=== PATIENT | male | born 1960 | race American Indian/Alaskan Native ===

== ENCOUNTER 2020-05-08 05:52 | Day surgery (SDC) | payer OTHER ==
[2020-05-08] MEDS ORDERED: SODIUM CHLORIDE 0.9% 1000 ML 1,000 ML IV SCH (06:00)
[2020-05-08] MEDS ORDERED: ceFAZolin/Water 2 GM/20 ML 2 GM/20 ML SYRINGE IV NR (06:00)
[2020-05-08 06:52] LABS: Hematocrit 32.1 % (35.5-45.6); Hemoglobin 10.6 gm/dl (11.8-15.2); Mean Corpuscular HGB Conc 33 % (32-34); Mean Corpuscular Volume 89 fl (84-94); Platelet Count 170 K/mm3 (140-440); Red Blood Count 3.62 M/mm3 (3.65-5.03); Red Cell Distribution Width 16.5 % (13.2-15.2)
[2020-05-08 07:02] LABS: Calcium 8.6 mg/dL (8.4-10.2)
[2020-05-08] MEDS ORDERED: LIDOCAINE (1%) 10 MG/1 ML VIAL 20 ML MDV ONE (07:05)
[2020-05-08] MEDS ORDERED: SODIUM CHLORIDE P/F VIAL 10 ML 0 ML ONE (07:06)
[2020-05-08] MEDS ORDERED: HEPARIN 10,000 UNITS/10 ML VIAL ONE (07:06)
[2020-05-08] MEDS ORDERED: BUPIVACAINE/PF (0.5%) 5 MG/1 ML 30 ML VIAL INFILTRATI ONE ×4 (07:06→08:50)
[2020-05-08] MEDS ORDERED: SODIUM CHLORIDE 0.9% 500 ML 500 ML ONE (07:06)
--- NOTE | 2020-05-08 07:15 | Anesthesia Day of Surgery ---
Anesthesia Day of Surgery - Day of Surgery Patient Examined: Yes Patient H&P Reviewed: Yes Patient is NPO: Yes Beta Blockers: Yes
--- NOTE | 2020-05-08 07:20 | Anesthesia Consultation ---
Anesthesia Consult and Med Hx - Airway Anesthetic Teeth Evaluation: Dentures, Edentulous ROM Head & Neck: Adequate Mental/Hyoid Distance: Adequate Mallampati Class: Class II Intubation Access Assessment: Good - Pre-Operative Health Status ASA Pre-Surgery Classification: ASA3 Proposed Anesthetic Plan: General - Pulmonary Hx Smoking: Yes (QUIT 2015) Hx Asthma: No Hx Respiratory Symptoms: No (+2FS) COPD: No Hx Pneumonia: No Hx Sleep Apnea: Yes (LOST APPROX[ 61 LBS ]) - Cardiovascular System Hx Hypertension: Yes Hx Heart Attack/AMI: No (CHF 2015; pt states stable now. Last cardiol visit 6-7 mos ago) Hx Pacemaker: No Hx Internal Defibrillator: No Hx Heart Murmur: No - Central Nervous System Hx Seizures: No Hx Back Pain: No Hx Psychiatric Problems: No - Gastrointestinal Hx Gastroesophageal Reflux Disease: No - Endocrine Hx Renal Disease: Yes Hx End Stage Renal Disease: Yes (Last HD yesterday. Still makes urine) Hx Cirrhosis: No Hx Liver Disease: No Hx Non-Insulin Dependent Diabetes: Yes Hx Thyroid Disease: No - Hematic Hx Anemia: Yes Hx Sickle Cell Disease: No - Other Systems Hx Alcohol Use: Yes (OCC. BEER) Hx Substance Use: No Hx Cancer: No Hx Obesity: Yes
[2020-05-08] MEDS ORDERED: HEPARIN 10,000 UNITS/10 ML VIAL IV ONE ×2 (07:23→08:50)
[2020-05-08] MEDS ORDERED: SODIUM CHLORIDE 0.9% IRR 1,500 ML BOTTLE IR ONE ×2 (07:24→08:50)
[2020-05-08] MEDS ORDERED: SODIUM CHLORIDE 0.9% 500 ML IVPB IRRIGATION ONE ×2 (07:25→08:50)
[2020-05-08] MEDS ORDERED: propofoL 200 MG/20 ML VIAL IV ONE (07:43)
[2020-05-08] MEDS ORDERED: HYDROmorphone 1 MG/1 ML INJ ONE (07:43)
[2020-05-08] MEDS ORDERED: LIDOCAINE MPF (2%) 20 MG/1 ML VIAL 5 ML ONE (07:43)
[2020-05-08] MEDS ORDERED: ONDANSETRON 4 MG/2 ML INJ ONE (10:44)
--- NOTE | 2020-05-08 11:02 | Short Stay Summary ---
Short Stay Documentation Date of service: 05/08/20 Narrative H&P: See H&P - History H&P: obtained from office - Allergies and Medications Current Medications: Allergies No Known Allergies Allergy (Unverified 05/01/20 14:43) Home Medications Medication Instructions Recorded Confirmed Last Taken Type Adult Multivitamin Extra D3 50,000 units IM QMONTH 05/01/20 05/08/20 05/07/20 09:00 History Atorvastatin 40 mg PO BID 05/01/20 05/08/20 05/07/20 09:00 History Colchicine 0.5 mg PO PRN PRN 05/01/20 05/08/20 Unknown History Furosemide [Lasix TAB] 40 mg PO BID 05/01/20 05/08/20 05/08/20 05:00 History amLODIPine 10 mg PO BID 05/01/20 05/08/20 05/08/20 05:00 History carvediloL [Coreg] 12.5 mg PO BID 05/01/20 05/08/20 05/08/20 05:00 History glyBURIDE [Diabeta] 5 mg PO BID 05/01/20 05/08/20 05/07/20 09:00 History hydrALAZINE 50 mg PO TID 05/01/20 05/08/20 05/08/20 05:00 History Active Medications Sodium Chloride (Nacl 0.9% 1000 Ml) 1,000 mls @ 42 mls/hr IV DIRECT JOCE Last Admin: 05/08/20 07:10 Dose: 42 mls/hr Documented by: Cefazolin Sodium (Ancef/Sterile Water 2 Gm/20 Ml) 2 gm in 20 mls @ 80 mls/hr IV PREOP NR; Protocol Stop: 05/08/20 23:00 - Brief post op/procedure progress note Date of procedure: 05/08/20 Pre-op diagnosis: Complications of Dialysis Access Post-op diagnosis: same Procedure: 1. Ligation and Excision of Left Elizabeth Fistula 2. Creation of Left Brachiobasilic Arteriovenous Fistula Anesthesia: DIOR Surgeon: LACY VASQUEZ Estimated blood loss: other (200 ml) Pathology: list (Left arm arteriovenous fistula pseudoaneurysm) Specimen disposition: to lab Condition: stable - Disposition Condition at discharge: Good Disposition: DC- TO HOME OR SELFCARE Short Stay Discharge Plan Activity: other (No heavy lifting with left arm for 2 weeks.) Wound: open to air, keep clean and dry, other (Okay to wash the wound with soap and water but do not soak in water for 2 weeks.) Follow up with: LACY VASQUEZ MD [Staff Physician] - 14 Days Prescriptions: HYDROcodone/APAP 7.5-325 [[place] 7.5/325] 1 each PO Q6HR PRN #40 tablet PRN Reason: Pain
--- NOTE | 2020-05-08 11:17 | Operative Report ---
Operative Report Operative Report: Date of procedure: 05/08/2020 Pre-operative diagnosis: Complications of Dialysis Access Post-operative diagnosis: Same Procedure(s): 1. Ligation of Left Arm Elizabeth Fistula With Excision of Pseudoaneurysm 2. Creation of Left Brachiocephalic Arteriovenous Fistula Surgeon: Bridger Herring MD [employer] Bookkeeper: None Anesthesia: General Endotracheal Anesthesia EBL: 200 mL Counts: Correct Complications: None Condition: Stable Findings: Successful creation of left brachiocephalic arteriovenous fistula with palpable thrill and palpable radial pulse at the completion of the case. Specimen: Left arm arteriovenous fistula pseudoaneurysm was sent to pathology. Indications: The patient is a 59-year-old male with a history of end-stage renal disease who is on hemodialysis through a left Elizabeth fistula. He has 2 large pseudoaneurysms with ulcerations over each pseudoaneurysm with thin skin and are worrisome for the potential to bleed. He is in need of a ligation of the fistula with a creation of a brachial cephalic fistula. He was given the risk, benefits, and alternative procedures and consented to the procedure. Description of Procedure: The patient was brought to the operating room and laid in supine position. After general endotracheal anesthesia was achieved a longitudinal incision was created in the forearm extending from the mid forearm, over the most proximal pseudoaneurysm to the distal forearm near the arterial anastomosis. Sharp dissection was used to create the dissection down to the fistula. Metzenbaums were then used to dissect the fistula circumferentially and then 2-0 silks x2 were used to ligate the fistula near the arterial anastomosis. I then clamped the fistula near the venous outflow and transected the fistula and passed it off the specimen. The distal outflow was then ligated with 0 silk. Hemostasis within the wound was then achieved with a combination of cautery and quick clot. I then made a transverse incision just below the antecubital crease and carried it down to the cephalic vein using sharp dissection. The vein was dissected out both proximally and distally and suture ligated and divided distally. I then ran a 3 Farzaneh proximally in the vein, to ensure patency of the vein. Then flushed the vein with heparinized saline and flow was controlled with a bulldog clamp. I then dissected out the brachial artery through this incision circumferentially both proximal and distal and controlled the artery with vessel loops. I used angled DeBakey clamps to control flow through the artery. I created an arteriotomy using an 11 blade and Littlejohn scissors. I created an end to side anastomosis between the cephalic vein and brachial artery using a 6-0 Prolene in running fashion. Prior to completing the anastomosis I flushed the artery both proximally and distally and then advanced a 3 Farzaneh proximally to break the spasm in the artery. I then completed the anastomosis and removed all clamps allowing flow into the fistula which had an adequate thrill. I achieved hemostasis with a combination of Quick Clot and electrocautery. Once hemostasis had been achieved I anesthetized both wounds with 0.5% Marcaine. I then closed both wounds in 2 layers using 3-0 Vicryl in running fashion the deep dermal layers and 4-0 Monocryl in running fashion the subcuticular layer. I then dressed both wounds with Dermabond. The patient tolerated the procedure well. All sponge, needle, and instrument counts were correct. The patient was taken to the recovery area in stable condition.
[2020-05-08 12:13] VITALS: BP 135/62
--- NOTE | 2020-05-08 15:05 | Post Anesthesia Evaluation ---
- Post Anesthesia Evaluation Patient Participated: Yes Airway Patent: Yes Stable Respiratory Function: Yes Nausea/Vomiting: No Temp > 96.8F: Yes Pain Manageable: Yes Adequeate Hydration: Yes Anesthesia Complications: No Block Receding Appropriately: Not Applicable Patient on Ventilator: No
== END 2020-05-08 12:40 | disposition home or self-care (01) ==
LOC: OR 05:52
PROVIDERS: ATTEND Surgery Vascular Surgery
DX: T82.590A Other mechanical complication of surgically created arteriovenous fistula, initial encounter (principal); I13.2 Hypertensive heart and chronic kidney disease with heart failure and with stage 5 chronic kidney disease, or end stage renal disease; E11.22 Type 2 diabetes mellitus with diabetic chronic kidney disease; I50.9 Heart failure, unspecified; N18.6 End stage renal disease; E78.00 Pure hypercholesterolemia, unspecified; G47.30 Sleep apnea, unspecified; E66.9 Obesity, unspecified; D64.9 Anemia, unspecified; Z68.31 Body mass index [BMI] 31.0-31.9, adult; Z79.899 Other long term (current) drug therapy; Z87.891 Personal history of nicotine dependence; Z72.89 Other problems related to lifestyle; Z98.890 Other specified postprocedural states; Y82.8 Other medical devices associated with adverse incidents; Y92.89 Other specified places as the place of occurrence of the external cause
CPT/HCPCS: 36415; 36821; 37607; 80048; 82962; 85027; 88304; J0690; J1170; J1644; J2405; J2704; J7030; J7040